=== PATIENT | male | born 1975 | race Caucasian/White ===

== ENCOUNTER → 2020-02-06 13:24 | Outpatient (CLI) | payer MEDICARE, SELFPAY | PROVIDERS: Visit Provider Family Medicine | DX: T14.8XXA Other injury of unspecified body region, initial encounter (principal) | CPT/HCPCS: 87070; 87077; 87186; 87205 ==

== ENCOUNTER → 2020-08-05 12:56 | Outpatient (CLI) | payer MEDICARE, SELFPAY ==
[2020-08-05 13:19] LABS: Basophils # 0.1 K/mm3 (0-0.2); Basophils % 0.9 % (0.1-2.0); Eosinophils # 0.2 K/mm3 (0.0-0.4); Eosinophils % 2.5 % (0.1-12.0); Hematocrit 59.8 % (42.0-52.0); Lymphocytes # 2.3 K/mm3 (0.7-4.5); Lymphocytes % 26.8 % (10-50); Mean Corpuscular HGB Conc 34.4 g/dL (31.8-35.4); Mean Corpuscular Volume 96.1 fl (80-94); Mean Platelet Volume 8.6 fl (7.4-10.4); Monocytes # 0.4 K/mm3 (0.1-1.0); Monocytes % 4.9 % (1.7-9.3); Neutrophils # 5.5 K/mm3 (1.8-7.8); Neutrophils % 64.8 % (37.0-80.0); Platelet Count 157 K/mm3 (142-424); Red Blood Count 6.21 M/mm3 (4.60-6.20); Red Cell Distribution Width 13.1 % (11.5-17.5); White Blood Count 8.5 K/mm3 (4.8-10.8)
[2020-08-05 13:20] LABS: Alanine Aminotransferase 41 U/L (12-78); Albumin Level 4.5 g/dl (3.5-5.0); Albumin/Globulin Ratio 1.7 (1.1-1.8); Alkaline Phosphatase 133 U/L (38-126); Anion Gap 15.1 mEq/L (5-15); Aspartate Amino Transferase 30 U/L (17-59); Bilirubin,Total 0.9 mg/dl (0.2-1.3); Blood Urea Nitrogen 10 mg/dl (9-20); Calcium 9.4 mg/dl (8.4-10.2); Carbon Dioxide 27 mmol/L (22.0-30.0); Chloride 100 mmol/L (98-107); Chol/HDL Ratio 5.9 (1-3.5); Cholesterol 213 mg/dl (140-200); Estimated Glomerular Filt Rate 121 ml/min (>60); GFR (African American) 146 ML/MIN (>60); Globulin 2.7 g/dL (1.3-3.2); Glucose 360 mg/dl (74-100); HDL Cholesterol 36 mg/dl (40-60); Potassium 4.1 mmoL/L (3.5-5.1); Sodium 138 mmol/L (136-145); Total Protein,Serum 7.2 g/dl (6.3-8.2); Triglycerides 357 mg/dl (30-150); VLDL Cholesterol 71 mg/dL (0-40)
[2020-08-05 13:31] LABS: Direct LDL Cholesterol 133.62 mg/dL (100-129)
[2020-08-05 13:36] LABS: 25-OH Vitamin D, Total 23.4 ng/mL (30-100)
[2020-08-05 13:37] LABS: T4 (Thyroxine) 5.1 ug/dl (5.53-11.0)
[2020-08-05 13:51] LABS: Hemoglobin 20.7 g/dL (14.1-18.0); Thyroid Stimulating Hormone 0.79 uIU/mL (0.465-4.68)
[2020-08-05 14:46] LABS: Creatinine,Urine Random 78 mg/dL (Not Estab.)
[2020-08-05 14:48] LABS: Microalbumin/Creatinine Ratio 41.4
[2020-08-13 18:00] LABS: Testosterone, Total, LC/MS 213.7 ng/dL (264.0-916.0); Testosterone,Free 4.8 pg/mL (6.8-21.5)
== END ==
PROVIDERS: Visit Provider Family Medicine
DX: E11.9 Type 2 diabetes mellitus without complications (principal); F40.298 Other specified phobia; G47.00 Insomnia, unspecified; E55.9 Vitamin D deficiency, unspecified; Z79.84 Long term (current) use of oral hypoglycemic drugs
CPT/HCPCS: 80053; 80061; 82043; 82306; 82570; 83036; 84402; 84403; 84436; 84443; 85025

== ENCOUNTER 2020-08-27 11:00 | Outpatient (CLI) | payer MEDICARE, SELFPAY ==
[2020-08-27 11:22] VITALS: BMI 26.5
--- NOTE | 2020-08-27 11:32 | XR_ITS ---
PROCEDURE: XR CHEST 2V CLINICAL HISTORY: ELEVATED HCT COMPARISON: No exams were available for comparison FINDINGS: The cardiomediastinal silhouette and pulmonary vascularity are within normal limits. The lungs are clear without infiltrates, suspicious nodules, or pleural effusions. No acute bony abnormalities. IMPRESSION: No acute findings. Dictated by: Laureano Haynes MD 08/27/2020 11:47 Laureano Haynes MD in [place] 08/27/2020 11:47
[2020-08-27 12:01] LABS: Basophils # 0.1 K/mm3 (0-0.2); Basophils % 0.8 % (0.1-2.0); Eosinophils # 0.3 K/mm3 (0.0-0.4); Eosinophils % 2.9 % (0.1-12.0); Hematocrit 55.6 % (42.0-52.0); Lymphocytes # 2.2 K/mm3 (0.7-4.5); Lymphocytes % 23.9 % (10-50); Mean Corpuscular HGB Conc 34.5 g/dL (31.8-35.4); Mean Corpuscular Hemoglobin 32.7 pg (27.0-31.2); Mean Corpuscular Volume 94.7 fl (80-94); Monocytes # 0.4 K/mm3 (0.1-1.0); Monocytes % 4.1 % (1.7-9.3); Neutrophils # 6.2 K/mm3 (1.8-7.8); Neutrophils % 68.4 % (37.0-80.0); Platelet Count 179 K/mm3 (142-424); Red Blood Count 5.88 M/mm3 (4.60-6.20); Red Cell Distribution Width 12.7 % (11.5-17.5); White Blood Count 9.1 K/mm3 (4.8-10.8)
[2020-08-27 12:02] LABS: Hemoglobin 19.2 g/dL (14.1-18.0)
[2020-08-27 12:18] LABS: Chloride 99 mmol/L (98-107); Potassium 4.1 mmoL/L (3.5-5.1); Sodium 137 mmol/L (136-145)
[2020-08-27 12:20] LABS: Blood Urea Nitrogen 11 mg/dl (9-20)
[2020-08-27 12:21] LABS: Alanine Aminotransferase 43 U/L (12-78); Albumin Level 4.5 g/dl (3.5-5.0); Albumin/Globulin Ratio 1.7 (1.1-1.8); Alkaline Phosphatase 116 U/L (38-126); Anion Gap 11.1 mEq/L (5-15); Aspartate Amino Transferase 28 U/L (17-59); Bilirubin,Total 0.7 mg/dl (0.2-1.3); Carbon Dioxide 31 mmol/L (22.0-30.0); Creatinine Clearance Estimated 120 mL/min (50-200); Estimated Glomerular Filt Rate 104 ml/min (>60); GFR (African American) 125 ML/MIN (>60); Globulin 2.7 g/dL (1.3-3.2); Total Protein,Serum 7.2 g/dl (6.3-8.2)
[2020-08-27 12:22] LABS: Calcium 9.4 mg/dl (8.4-10.2); Glucose 344 mg/dl (74-100)
--- NOTE | 2020-08-27 14:01 | PC.NURSE ---
1155 - BLOOD DRAWN FROM LEFT AC USING BUTTERFLY NEEDLE TO CHECK LABS ORDERED BY DR MAI. 1210 - PT'S HCT 55.6. HAS ORDER FOR THERAPEUTIC PHLEBOTOMY IF HCT>54. PT VERY ANXIOUS ABOUT NEEDLES AND MEDICAL PROCEDURES. ASKING A LOT OF QUESTIONS ABOUT WHAT RISKS ARE INVOLVED WITH ELEVATED HCT. PT STATED HE HAD MADE RECENT LIFESTYLE CHANGES AND HIS LEVELS HAVE DROPPED SINCE HE HAD LABS CHECKED ON 08/05/20 THEREFORE HE WAS GOING TO CONTINUE WITH THESE CHANGES AND TRY TO BRING THE HCT DOWN HIMSELF. REFUSED THERAPEUTIC PHLEBOTOMY TODAY. WILL RETURN FOR LABS AND TO SEE DR MAI ON 09/17/20. DR MAI NOTIFIED.
== END 2020-08-27 12:10 | disposition home or self-care (01) ==
PROVIDERS: PCP Family Medicine; Visit Provider Internal Medicine Medical Oncology
DX: D68.9 Coagulation defect, unspecified; Z72.0 Tobacco use; D75.1 Secondary polycythemia
CPT/HCPCS: 71046; 80053; 81270; 82668; 85025

== ENCOUNTER → 2020-11-30 15:39 | Outpatient (CLI) | payer MEDICARE, SELFPAY ==
[2020-11-30 16:27] LABS: Chloride 99 mmol/L (98-107); Potassium 4.8 mmoL/L (3.5-5.1); Sodium 139 mmol/L (136-145)
[2020-11-30 16:30] LABS: Alanine Aminotransferase 30 U/L (12-78); Albumin Level 4.7 g/dl (3.5-5.0); Albumin/Globulin Ratio 1.7 (1.1-1.8); Alkaline Phosphatase 159 U/L (38-126); Anion Gap 16.8 mEq/L (5-15); Aspartate Amino Transferase 23 U/L (17-59); Blood Urea Nitrogen 6 mg/dl (9-20); Calcium 9.7 mg/dl (8.4-10.2); Carbon Dioxide 28 mmol/L (22.0-30.0); Estimated Glomerular Filt Rate 144 ml/min (>60); GFR (African American) 175 ML/MIN (>60); Globulin 2.7 g/dL (1.3-3.2); Glucose 266 mg/dl (74-100); Total Protein,Serum 7.4 g/dl (6.3-8.2)
== END ==
PROVIDERS: Visit Provider Family Medicine
DX: Z09 Encounter for follow-up examination after completed treatment for conditions other than malignant neoplasm (principal); E11.9 Type 2 diabetes mellitus without complications; Z79.4 Long term (current) use of insulin
CPT/HCPCS: 80053; 83036

== ENCOUNTER → 2021-10-27 16:47 | Outpatient (CLI) | payer MEDICARE, SELFPAY ==
[2021-10-27 15:14] LABS: Basophils # 0.1 K/mm3 (0-0.2); Basophils % 0.7 % (0.1-2.0); Eosinophils # 0.2 K/mm3 (0.0-0.4); Eosinophils % 1.9 % (0.1-12.0); Lymphocytes # 2.3 K/mm3 (0.7-4.5); Lymphocytes % 21.9 % (10-50); Mean Corpuscular HGB Conc 34.5 g/dL (31.8-35.4); Mean Corpuscular Hemoglobin 32.5 pg (27.0-31.2); Mean Corpuscular Volume 94.4 fl (80-94); Mean Platelet Volume 8.8 fl (7.4-10.4); Monocytes # 0.7 K/mm3 (0.1-1.0); Monocytes % 6.6 % (1.7-9.3); Neutrophils # 7.1 K/mm3 (1.8-7.8); Neutrophils % 68.9 % (37.0-80.0); Platelet Count 175 K/mm3 (142-424); Red Blood Count 6.43 M/mm3 (4.60-6.20); Red Cell Distribution Width 13.3 % (11.5-17.5); White Blood Count 10.3 K/mm3 (4.8-10.8)
[2021-10-27 15:28] LABS: Alanine Aminotransferase 40 U/L (12-78); Albumin Level 4.8 g/dl (3.5-5.0); Albumin/Globulin Ratio 1.6 (1.1-1.8); Aspartate Amino Transferase 25 U/L (17-59); Blood Urea Nitrogen 10 mg/dl (9-20); Carbon Dioxide 30 mmol/L (22.0-30.0); Cholesterol 239 mg/dl (140-200); Estimated Glomerular Filt Rate 177 ml/min (>60); GFR (African American) 215 ML/MIN (>60); Potassium 4.4 mmoL/L (3.5-5.1); Sodium 137 mmol/L (136-145); Total Protein,Serum 7.8 g/dl (6.3-8.2); Triglycerides 218 mg/dl (30-150); VLDL Cholesterol 44 mg/dL (0-40)
[2021-10-27 15:31] LABS: Alkaline Phosphatase 147 U/L (38-126); Anion Gap 14.4 mEq/L (5-15); Bilirubin,Total 1.9 mg/dl (0.2-1.3); Calcium 10.2 mg/dl (8.4-10.2); Chloride 97 mmol/L (98-107); Glucose 273 mg/dl (74-100); HDL Cholesterol 40 mg/dl (40-60)
[2021-10-27 15:39] LABS: Direct LDL Cholesterol 151.86 mg/dL (100-129)
[2021-10-27 16:01] LABS: Prostate Specific Ag Screen 0.7 ng/ml (0.0-4.0); Thyroid Stimulating Hormone 1.79 uIU/mL (0.465-4.68)
[2021-10-27 17:43] LABS: Hemoglobin A1C 9.8 % (4.0-6.0)
[2021-10-27 18:27] LABS: Hematocrit 60.7 % (42.0-52.0)
== END ==
PROVIDERS: Visit Provider Family Medicine
DX: E11.9 Type 2 diabetes mellitus without complications (principal); R63.4 Abnormal weight loss; Z12.5 Encounter for screening for malignant neoplasm of prostate; G47.00 Insomnia, unspecified; F40.298 Other specified phobia; Z79.4 Long term (current) use of insulin
CPT/HCPCS: 80053; 80061; 83036; 84443; 85025; G0103

== ENCOUNTER → 2021-11-07 10:15 | Outpatient (CLI) | payer MEDICARE, SELFPAY ==
--- NOTE | 2021-11-07 10:20 | CT_ITS ---
FINAL REPORT TECHNIQUE: Axial images through the abdomen and pelvis were performed without contrast.This study was performed with techniques to keep radiation doses as low as reasonably achievable, (ALARA). Individualized dose reduction techniques using automated exposure control or adjustment of mA and/or kV according to the patient's size were employed. CLINICAL HISTORY: abn weight loss in last 6 months, denies n/v/d FINDINGS: ABDOMEN: The heart size is normal. Limited images of the liver and gallbladder are unremarkable. Calcified granulomas are seen within the spleen. The spleen is otherwise normal. No adrenal mass is identified. The aorta is normal in caliber. There is no significant free fluid or adenopathy. There is no nephrolithiasis. There is no hydronephrosis. PELVIS: The appendix is normal. The urinary bladder is incompletely distended. There is no significant free fluid or adenopathy. IMPRESSION: No acute process of the abdomen or pelvis. Reviewed, Interpreted and Dictated by Saad Thomas MD Transcribed by Theresa Khanna Authenticated and [facility]
--- NOTE | 2021-11-07 10:20 | CT_ITS ---
FINAL REPORT TECHNIQUE: Axial imaging of the chest was obtained without contrast. Reformatted images were also obtained and reviewed.This study was performed with techniques to keep radiation doses as low as reasonably achievable, (ALARA). Individualized dose reduction technique using automated exposure control or adjustment of mA and/or kV according to the patient's size were employed. CLINICAL HISTORY: weight loss in last 6 months FINDINGS: There is no axillary adenopathy. There are small mediastinal lymph nodes measuring up to 1 cm. Heart size is normal. There is no pericardial or pleural effusion. No suspicious infiltrate or nodule is identified on lung window images. IMPRESSION: Small mediastinal lymph nodes measuring up to 1 cm. Otherwise, unremarkable exam. Reviewed, Interpreted and Dictated by Saad Thomas MD Transcribed by Theresa Khanna Authenticated and . [facility]
== END ==
PROVIDERS: PCP Family Medicine; Visit Provider Family Medicine
DX: R63.4 Abnormal weight loss (principal); Z68.22 Body mass index [BMI] 22.0-22.9, adult
CPT/HCPCS: 71250; 74176

== ENCOUNTER 2022-01-20 10:25 | Outpatient (CLI) | payer MEDICARE, SELFPAY ==
[2022-01-20 10:31] VITALS: BMI 22.6
[2022-01-20 11:33] LABS: Basophils # 0.2 K/mm3 (0-0.2); Eosinophils # 0.3 K/mm3 (0.0-0.4); Eosinophils % 3.2 % (0.1-12.0); Mean Corpuscular HGB Conc 32.6 g/dL (31.8-35.4); Mean Corpuscular Hemoglobin 32.8 pg (27.0-31.2); Mean Corpuscular Volume 100.5 fl (80-94); Monocytes # 0.5 K/mm3 (0.1-1.0); Monocytes % 5.3 % (1.7-9.3); Neutrophils # 6.4 K/mm3 (1.8-7.8); Neutrophils % 68.6 % (37.0-80.0); Platelet Count 194 K/mm3 (142-424); Red Cell Distribution Width 13.5 % (11.5-17.5); White Blood Count 9.4 K/mm3 (4.8-10.8)
[2022-01-20 11:40] LABS: Hematocrit 60.3 % (42.0-52.0); Hemoglobin 19.9 g/dL (14.1-18.0)
[2022-01-20 11:44] LABS: Hemoglobin A1C 8.6 % (4.0-6.0)
--- NOTE | 2022-01-20 14:20 | PC.NURSE ---
1120-BLOOD DRAWN FROM LEFT AC USING BUTTERFLY NEEDLE FOR CBC AND HGB A1C.
--- NOTE | 2022-01-20 14:22 | PC.NURSE ---
1140-SPOKE WITH PT IN DEPTH ABOUT ORDERS FOR THERAPEUTIC PHLEBOTOMY DUE TO HCT 60.3 DISCUSSED RISKS ASSOCIATED WITH ELEVATED HCT AND PT REFUSES TO STAY FOR PHLEBOTOMY. STATES HE WILL CALL US BACK IF HE CHANGES HIS MIND.
== END 2022-01-20 11:55 | disposition home or self-care (01) ==
LOC: INF 10:29
PROVIDERS: PCP Family Medicine; Visit Provider Internal Medicine Medical Oncology
DX: E11.9 Type 2 diabetes mellitus without complications (principal); Z79.4 Long term (current) use of insulin
CPT/HCPCS: 36415; 83036; 85025

== ENCOUNTER 2022-03-28 11:17 | Day surgery (SDC) | payer MEDICARE, SELFPAY ==
[2022-03-24 15:38] VITALS: BMI 21.3
[2022-03-28] VITALS (8 sets, daily range): BP systolic 91–114; BP diastolic 60–77; PULSE 81–103; RESP 18–20; TEMP 36.3–36.6; O2SAT 92–96
--- NOTE | 2022-03-28 12:05 | EXP.ANES.CKL ---
[facility] Medical History Anal fistula Anxiety Chronic pain Diabetes HLD (hyperlipidemia) HTN (hypertension) Insomnia Neuropathy Surgical History No significant past surgical history Family History Other No significant family history Social History Smoking Status: Current every day smoker tobacco type: cigarettes packs per day: 1 alcohol intake: never substance use type: denies use current occupational status: unemployed and disabled Travel in the last 8 weeks: None household members: spouse housing: house [facility] Anesthesia Checklist Patient Identification Patient Identification: Arm Band Structural Data Admitted From: Home Planned Operative Procedure/s: EGD/Colonoscopy Consent for Planned Operative Procedure(s) Verified: Yes Verified Documents: Surgical Consent and History and Physical NPO Status Verified Time NPO: 07:00 (clear liquids) Additional verifications Anesthesia Reactions: No Airway Assessment C-Spine Mobility Assessed: Yes TMJ Mobility Assessed: Yes Dentition: Good Dentition Neurological Assessment Level of Consciousness: Awake and Alert Anesthesia Plan Anesthesia Risk discussed: Yes Anesthesia Plan: Verified ASA Class: II Anesthesia Type: MAC
--- NOTE | 2022-03-28 12:58 | HMH.SCOPE ---
Procedure: Date: 03/28/22 Patient Date of :: 1975 Procedure Performed:: Esophagogastroduodenoscopy with biopsy Colonoscopy with polypectomy Indications:: Epigastric pain Screening colonoscopy Performing Provider:: Will Adams MD Referring Provider:: . Sedation:: Monitored anesthesia care Procedure:: After informed consent was obtained the patient was taken to the endoscopy suite. Sedation ensued after the patient was transferred to the left lateral decubitus position. Pulse, blood pressure, and oxygen saturation were monitored throughout the procedure. The endoscope was advanced beyond the duodenal bulb. Retroflexion within the gastric lumen was accomplished. The gastroscope was carefully removed. Digital rectal exam revealed no significant abnormality. The colonoscope was placed in position. The entire colon was evaluated. The colonoscope was carefully removed and the patient was transferred to recovery in stable condition. Please see findings and specimens below for detail. Findings:: Small sliding hiatal hernia Patchy gastritis Gastroesophageal junction at 41 cm Tiny mid gastric body ulcerations (essentially healed) Hemorrhoidal cushions/tags Bowel preparation moderate to poor Fairly significant tortuosity and lack of relaxation Polyps (see specimens) Specimens:: Antral biopsy Mid gastric body (small/essentially healed ulcerations) biopsy Biopsy of perianal cushion Sessile mid right colon polyp (cold snare) Hepatic flexure polyp (cold snare) Recommendations:: Timing of repeat colonoscopy is pending pathology but likely be around 1-2 years with extended bowel preparation. Proton pump inhibition Complications:: No immediate Estimated blood obtained (mL): 1
[2022-03-28 22:26] LABS: POC Glucose,Bedside 140 (70-110)
== END 2022-03-28 14:28 | disposition home or self-care (01) ==
PROVIDERS: PCP Family Medicine; Visit Provider Surgery
PROC: 0DJ08ZZ Inspection of Upper Intestinal Tract, Via Natural or Artificial Opening Endoscopic (ICD-10-PCS; CPT 43235; principal; 2022-03-28 12:30)
DX: R10.13 Epigastric pain (principal); Z12.11 Encounter for screening for malignant neoplasm of colon; K63.5 Polyp of colon; K29.50 Unspecified chronic gastritis without bleeding; E11.9 Type 2 diabetes mellitus without complications; Z79.899 Other long term (current) drug therapy; Z72.0 Tobacco use
CPT/HCPCS: 43239; 45385; 82962; 88305; 88342; J2704

== ENCOUNTER → 2022-04-20 12:02 | Outpatient (CLI) | payer MEDICARE, SELFPAY ==
--- NOTE | 2022-04-20 12:05 | US_ITS ---
FINAL REPORT CLINICAL HISTORY: RUQ pain FINDINGS: Sonographic images of the right upper quadrant were obtained. The pancreas is partially obscured.The liver has an unremarkable appearance.The gallbladder appears normal without evidence of gallstones.There is no evidence of biliary ductal dilatation.The common duct measures 3 mm. Limited images of the right kidney are unremarkable. IMPRESSION: Unremarkable right upper quadrant ultrasound. Reviewed, Interpreted and Dictated by Marcelo Laird III, MD Transcribed by Carmela Mcdermott Authenticated and [facility]
== END ==
PROVIDERS: PCP Family Medicine; Visit Provider Family Medicine
DX: R10.11 Right upper quadrant pain (principal)
CPT/HCPCS: 76705

== ENCOUNTER → 2022-06-15 12:57 | Outpatient (CLI) | payer MEDICARE, SELFPAY ==
[2022-06-15 17:08] LABS: MANUAL DIFFERENTIAL MANUAL DIFFERENTIAL (MANUAL DIFF)
[2022-06-15 17:53] LABS: Basophils # 0.1 K/mm3 (0-0.2); Basophils % 0.7 % (0.1-2.0); Eosinophils # 0.2 K/mm3 (0.0-0.4); Hematocrit 46.3 % (42.0-52.0); Hemoglobin 15.2 g/dL (14.1-18.0); Lymphocytes % 26.7 % (10-50); Mean Corpuscular HGB Conc 32.9 g/dL (31.8-35.4); Mean Corpuscular Hemoglobin 31.2 pg (27.0-31.2); Mean Corpuscular Volume 94.8 fl (80-94); Mean Platelet Volume 8.7 fl (7.4-10.4); Monocytes # 0.6 K/mm3 (0.1-1.0); Monocytes % 5.2 % (1.7-9.3); Neutrophils # 7.4 K/mm3 (1.8-7.8); Neutrophils % 65.4 % (37.0-80.0); Platelet Count 330 K/mm3 (142-424); Red Blood Count 4.89 M/mm3 (4.60-6.20); Red Cell Distribution Width 12.8 % (11.5-17.5); White Blood Count 11.3 K/mm3 (4.8-10.8)
[2022-06-15 18:05] LABS: Alanine Aminotransferase 23 U/L (12-78); Albumin Level 4.5 g/dl (3.5-5.0); Albumin/Globulin Ratio 1.6 (1.1-1.8); Alkaline Phosphatase 128 U/L (38-126); Anion Gap 10.7 mEq/L (5-15); Aspartate Amino Transferase 19 U/L (17-59); Bilirubin,Total 0.6 mg/dl (0.2-1.3); Blood Urea Nitrogen 11 mg/dl (9-20); Calcium 9.4 mg/dl (8.4-10.2); Carbon Dioxide 32 mmol/L (22.0-30.0); Chloride 98 mmol/L (98-107); Chol/HDL Ratio 5.9 (1-3.5); Cholesterol 177 mg/dl (140-200); Estimated Glomerular Filt Rate 144 ml/min (>60); GFR (African American) 174 ML/MIN (>60); Globulin 2.8 g/dL (1.3-3.2); Glucose 122 mg/dl (74-100); HDL Cholesterol 30 mg/dl (40-60); Lipase 43 U/L (23-300); Potassium 3.7 mmoL/L (3.5-5.1); Sodium 137 mmol/L (136-145); Total Protein,Serum 7.3 g/dl (6.3-8.2); Triglycerides 161 mg/dl (30-150); VLDL Cholesterol 32 mg/dL (0-40)
[2022-06-15 18:15] LABS: Direct LDL Cholesterol 115.24 mg/dL (100-129)
[2022-06-15 19:10] LABS: Hemoglobin A1C 6.6 % (4.0-6.0)
[2022-06-15 19:24] LABS: Lymphocytes % 44 % (10-50); Monocytes % 3 % (2-9); Neutrophils % 52 % (42-76); Total Cells Counted 100
[2022-06-15 19:25] LABS: Anisocytosis 1+; Platelet Estimate Slight Increase
[2022-06-16 16:13] LABS: H. pylori Breath Test Negative (Negative)
[2022-06-22 12:37] LABS: Testosterone,Free 4.4 pg/mL (6.8-21.5)
== END ==
PROVIDERS: PCP Family Medicine; Visit Provider Family Medicine
DX: A04.8 Other specified bacterial intestinal infections (principal); E11.9 Type 2 diabetes mellitus without complications; G89.29 Other chronic pain; M54.9 Dorsalgia, unspecified; R10.9 Unspecified abdominal pain; Z79.4 Long term (current) use of insulin
CPT/HCPCS: 80053; 80061; 83013; 83036; 83690; 84402; 84403; 85007; 85014; 85018; 85048; 85049

== ENCOUNTER → 2022-07-20 11:15 | Outpatient (CLI) | payer MEDICARE, SELFPAY ==
[2022-07-20 14:49] LABS: Chloride 99 mmol/L (98-107)
[2022-07-20 14:50] LABS: Sodium 138 mmol/L (136-145)
[2022-07-20 14:52] LABS: Blood Urea Nitrogen 12 mg/dl (9-20); Estimated Glomerular Filt Rate 120 ml/min (>60); GFR (African American) 145 ML/MIN (>60)
[2022-07-20 14:53] LABS: Carbon Dioxide 33 mmol/L (22.0-30.0); Glucose 114 mg/dl (74-100)
== END ==
PROVIDERS: PCP Family Medicine; Visit Provider Family Medicine
DX: E78.5 Hyperlipidemia, unspecified (principal)
CPT/HCPCS: 80048

== ENCOUNTER → 2022-11-09 23:08 | Outpatient (CLI) | payer MEDICARE, SELFPAY ==
[2022-11-09 18:12] LABS: Basophils % 0.6 % (0.1-2.0); Eosinophils # 0.2 K/mm3 (0.0-0.4); Eosinophils % 2.6 % (0.1-12.0); Hematocrit 57.6 % (42.0-52.0); Lymphocytes # 1.9 K/mm3 (0.7-4.5); Lymphocytes % 24.9 % (10-50); Mean Corpuscular HGB Conc 32.1 g/dL (31.8-35.4); Mean Corpuscular Hemoglobin 31.3 pg (27.0-31.2); Mean Corpuscular Volume 97.6 fl (80-94); Mean Platelet Volume 8.8 fl (7.4-10.4); Monocytes # 0.4 K/mm3 (0.1-1.0); Monocytes % 5.1 % (1.7-9.3); Neutrophils % 66.7 % (37.0-80.0); Platelet Count 193 K/mm3 (142-424); Red Cell Distribution Width 13.6 % (11.5-17.5); White Blood Count 7.4 K/mm3 (4.8-10.8)
[2022-11-09 18:14] LABS: Alanine Aminotransferase 18 U/L (12-78); Albumin Level 4.2 g/dl (3.5-5.0); Albumin/Globulin Ratio 1.8 (1.1-1.8); Alkaline Phosphatase 100 U/L (38-126); Anion Gap 10.2 mEq/L (5-15); Aspartate Amino Transferase 22 U/L (17-59); Bilirubin,Total 0.9 mg/dl (0.2-1.3); Blood Urea Nitrogen 7 mg/dl (9-20); Calcium 9.2 mg/dl (8.4-10.2); Carbon Dioxide 32 mmol/L (22.0-30.0); Chloride 103 mmol/L (98-107); Chol/HDL Ratio 3.4 (1-3.5); Cholesterol 167 mg/dl (140-200); Estimated Glomerular Filt Rate 143 ml/min (>60); GFR (African American) 173 ML/MIN (>60); Globulin 2.4 g/dL (1.3-3.2); Glucose 103 mg/dl (74-100); HDL Cholesterol 49 mg/dl (40-60); Potassium 4.2 mmoL/L (3.5-5.1); Sodium 141 mmol/L (136-145); Total Protein,Serum 6.6 g/dl (6.3-8.2); Triglycerides 103 mg/dl (30-150); VLDL Cholesterol 21 mg/dL (0-40)
[2022-11-09 18:24] LABS: Direct LDL Cholesterol 98.81 mg/dL (100-129)
[2022-11-09 18:37] LABS: Hemoglobin 18.3 g/dL (14.1-18.0)
[2022-11-09 19:13] LABS: Hemoglobin A1C 6.3 % (4.0-6.0)
== END ==
PROVIDERS: PCP Family Medicine; Visit Provider Family Medicine
DX: E11.9 Type 2 diabetes mellitus without complications (principal); Z79.899 Other long term (current) drug therapy
CPT/HCPCS: 80053; 80061; 83036; 84443; 85025

== ENCOUNTER → 2023-01-11 23:52 | Outpatient (CLI) | payer MEDICARE, SELFPAY ==
[2023-01-11 18:27] LABS: Basophils # 0.1 K/mm3 (0-0.2); Basophils % 0.7 % (0.1-2.0); Eosinophils # 0.1 K/mm3 (0.0-0.4); Eosinophils % 1.7 % (0.1-12.0); Lymphocytes # 1.8 K/mm3 (0.7-4.5); Lymphocytes % 21.1 % (10-50); Mean Corpuscular HGB Conc 31.3 g/dL (31.8-35.4); Mean Corpuscular Hemoglobin 32.2 pg (27.0-31.2); Mean Corpuscular Volume 102.7 fl (80-94); Mean Platelet Volume 8.7 fl (7.4-10.4); Monocytes # 0.5 K/mm3 (0.1-1.0); Monocytes % 5.7 % (1.7-9.3); Neutrophils # 5.9 K/mm3 (1.8-7.8); Neutrophils % 70.8 % (37.0-80.0); Platelet Count 160 K/mm3 (142-424); Red Blood Count 5.87 M/mm3 (4.60-6.20); Red Cell Distribution Width 14.5 % (11.5-17.5); White Blood Count 8.3 K/mm3 (4.8-10.8)
[2023-01-11 18:53] LABS: Hematocrit 60.3 % (42.0-52.0); Hemoglobin 18.9 g/dL (14.1-18.0)
[2023-01-11 18:54] LABS: Alanine Aminotransferase 19 U/L (12-78); Albumin Level 4.1 g/dl (3.5-5.0); Albumin/Globulin Ratio 1.6 (1.1-1.8); Alkaline Phosphatase 107 U/L (38-126); Anion Gap 11.9 mEq/L (5-15); Aspartate Amino Transferase 22 U/L (17-59); Bilirubin,Total 1.3 mg/dl (0.2-1.3); Blood Urea Nitrogen 11 mg/dl (9-20); Calcium 9.1 mg/dl (8.4-10.2); Carbon Dioxide 32 mmol/L (22.0-30.0); Chloride 103 mmol/L (98-107); Chol/HDL Ratio 2.3 (1-3.5); Cholesterol 144 mg/dl (140-200); Estimated Glomerular Filt Rate 120 ml/min (>60); GFR (African American) 145 ML/MIN (>60); Globulin 2.6 g/dL (1.3-3.2); Glucose 109 mg/dl (74-100); HDL Cholesterol 63 mg/dl (40-60); Potassium 3.9 mmoL/L (3.5-5.1); Sodium 143 mmol/L (136-145); Total Protein,Serum 6.7 g/dl (6.3-8.2); Triglycerides 128 mg/dl (30-150); VLDL Cholesterol 26 mg/dL (0-40)
[2023-01-11 19:02] LABS: Hemoglobin A1C 5.6 % (4.0-6.0)
[2023-01-11 19:06] LABS: Direct LDL Cholesterol 72.59 mg/dL (100-129)
== END ==
PROVIDERS: PCP Family Medicine; Visit Provider Family Medicine
DX: F41.9 Anxiety disorder, unspecified (principal); M54.40 Lumbago with sciatica, unspecified side; E11.9 Type 2 diabetes mellitus without complications
CPT/HCPCS: 80053; 80061; 83036; 85025

== ENCOUNTER → 2023-04-12 23:33 | Outpatient (CLI) | payer MEDICARE, SELFPAY ==
[2023-04-12 21:38] LABS: Amphetamine/Metha Screen,Urine Negative ng/ml (<1000)
[2023-04-12 21:40] LABS: Cannabinoid Screen,Urine Negative ng/ml (<50)
[2023-04-12 21:41] LABS: Barbiturates Screen,Urine Negative ng/ml (<200)
[2023-04-12 21:42] LABS: Benzodiazepines Screen,Urine Positive ng/ml (<200); Opiate Screen,Urine Positive ng/ml (<300)
[2023-04-12 21:43] LABS: Cocaine Screen,Urine Negative ng/ml (<300)
[2023-04-12 21:44] LABS: Methadone Screen,Urine Negative ng/ml (<300)
[2023-04-12 21:45] LABS: Phencyclidine Screen,Urine Negative ng/ml (<25)
== END ==
PROVIDERS: PCP Family Medicine; Visit Provider Family Medicine
DX: Z79.899 Other long term (current) drug therapy (principal)
CPT/HCPCS: 80305

== ENCOUNTER 2023-05-10 19:43 | Outpatient (CLI) | payer MEDICARE, SELFPAY ==
[2023-05-10 22:29] LABS: Amphetamine/Metha Screen,Urine Negative ng/ml (<1000); Barbiturates Screen,Urine Negative ng/ml (<200); Benzodiazepines Screen,Urine Positive ng/ml (<200); Cannabinoid Screen,Urine Negative ng/ml (<50); Cocaine Screen,Urine Negative ng/ml (<300); Methadone Screen,Urine Negative ng/ml (<300); Opiate Screen,Urine Positive ng/ml (<300); Phencyclidine Screen,Urine Negative ng/ml (<25)
== END 2023-05-10 23:59 ==
LOC: LAB.DROPOF 19:43
PROVIDERS: PCP Family Medicine; Visit Provider Family Medicine
DX: Z79.899 Other long term (current) drug therapy (principal)
CPT/HCPCS: 80307

== ENCOUNTER 2023-06-07 22:13 | Outpatient (CLI) | payer MEDICARE, SELFPAY ==
[2023-06-07 19:21] LABS: Basophils # 0.1 K/mm3 (0-0.2); Basophils % 0.6 % (0.1-2.0); Eosinophils # 0.3 K/mm3 (0.0-0.4); Eosinophils % 2.9 % (0.1-12.0); Lymphocytes # 2.3 K/mm3 (0.7-4.5); Lymphocytes % 24.8 % (10-50); Mean Corpuscular HGB Conc 32.8 g/dL (31.8-35.4); Mean Corpuscular Hemoglobin 33.9 pg (27.0-31.2); Mean Corpuscular Volume 103.4 fl (80-94); Mean Platelet Volume 9.1 fl (7.4-10.4); Monocytes # 0.5 K/mm3 (0.1-1.0); Monocytes % 5.8 % (1.7-9.3); Neutrophils # 6.1 K/mm3 (1.8-7.8); Platelet Count 156 K/mm3 (142-424); Red Blood Count 5.62 M/mm3 (4.60-6.20); Red Cell Distribution Width 12.9 % (11.5-17.5); White Blood Count 9.2 K/mm3 (4.8-10.8)
[2023-06-07 19:43] LABS: Alanine Aminotransferase 22 U/L (12-78); Albumin Level 4.3 g/dl (3.5-5.0); Albumin/Globulin Ratio 1.9 (1.1-1.8); Alkaline Phosphatase 94 U/L (38-126); Anion Gap 8.9 mEq/L (5-15); Aspartate Amino Transferase 26 U/L (17-59); Bilirubin,Total 0.7 mg/dl (0.2-1.3); Blood Urea Nitrogen 12 mg/dl (9-20); Calcium 9.4 mg/dl (8.4-10.2); Carbon Dioxide 32 mmol/L (22.0-30.0); Chloride 103 mmol/L (98-107); Chol/HDL Ratio 3.7 (1-3.5); Cholesterol 174 mg/dl (140-200); Estimated Glomerular Filt Rate 103 ml/min (>60); GFR (African American) 124 ML/MIN (>60); Globulin 2.3 g/dL (1.3-3.2); Glucose 81 mg/dl (74-100); HDL Cholesterol 47 mg/dl (40-60); Potassium 3.9 mmoL/L (3.5-5.1); Sodium 140 mmol/L (136-145); Total Protein,Serum 6.6 g/dl (6.3-8.2); Triglycerides 144 mg/dl (30-150); VLDL Cholesterol 29 mg/dL (0-40)
[2023-06-07 19:54] LABS: Direct LDL Cholesterol 95.86 mg/dL (100-129)
[2023-06-08 00:18] LABS: Hemoglobin A1C 5.7 % (4.0-6.0)
[2023-06-09 06:04] LABS: Testosterone,Total 360 ng/dL (264-916)
== END 2023-06-07 23:59 ==
LOC: LAB.DROPOF 22:13
PROVIDERS: PCP Family Medicine; Visit Provider Family Medicine
DX: E11.9 Type 2 diabetes mellitus without complications (principal); R68.82 Decreased libido; F41.9 Anxiety disorder, unspecified; Z79.4 Long term (current) use of insulin; Z79.84 Long term (current) use of oral hypoglycemic drugs; Z79.85 Long-term (current) use of injectable non-insulin antidiabetic drugs
CPT/HCPCS: 80053; 80061; 83036; 84403; 85025

== ENCOUNTER 2023-12-20 11:19 | Outpatient (CLI) | payer MEDICARE, SELFPAY ==
[2023-12-20 20:01] LABS: Basophils # 0.1 K/mm3 (0-0.2); Eosinophils # 0.2 K/mm3 (0.0-0.4); Eosinophils % 2.8 % (0.1-12.0); Hematocrit 52.4 % (42.0-52.0); Hemoglobin 16.8 g/dL (14.1-18.0); Lymphocytes # 2.3 K/mm3 (0.7-4.5); Lymphocytes % 26.2 % (10-50); Mean Corpuscular Hemoglobin 32.7 pg (27.0-31.2); Mean Corpuscular Volume 102.1 fl (80-94); Mean Platelet Volume 8.8 fl (7.4-10.4); Monocytes # 0.5 K/mm3 (0.1-1.0); Neutrophils # 5.5 K/mm3 (1.8-7.8); Platelet Count 228 K/mm3 (142-424); Red Blood Count 5.13 M/mm3 (4.60-6.20); Red Cell Distribution Width 13.1 % (11.5-17.5); White Blood Count 8.6 K/mm3 (4.8-10.8)
[2023-12-20 20:14] LABS: Alanine Aminotransferase 25 U/L (12-78); Albumin Level 4.2 g/dl (3.5-5.0); Albumin/Globulin Ratio 1.5 (1.1-1.8); Alkaline Phosphatase 113 U/L (38-126); Anion Gap 11.2 mEq/L (5-15); Aspartate Amino Transferase 31 U/L (17-59); Bilirubin,Total 0.6 mg/dl (0.2-1.3); Blood Urea Nitrogen 10 mg/dl (9-20); Calcium 9.4 mg/dl (8.4-10.2); Carbon Dioxide 28 mmol/L (22.0-30.0); Chloride 107 mmol/L (98-107); Chol/HDL Ratio 4.3 (1-3.5); Cholesterol 160 mg/dl (140-200); Estimated Glomerular Filt Rate 119 ml/min (>60); GFR (African American) 144 ML/MIN (>60); Globulin 2.8 g/dL (1.3-3.2); Glucose 62 mg/dl (74-100); HDL Cholesterol 37 mg/dl (40-60); Potassium 4.2 mmoL/L (3.5-5.1); Sodium 142 mmol/L (136-145); Triglycerides 206 mg/dl (30-150); VLDL Cholesterol 41 mg/dL (0-40)
[2023-12-20 20:25] LABS: Direct LDL Cholesterol 101.99 mg/dL (100-129)
[2023-12-20 20:32] LABS: Hemoglobin A1C 5.8 % (4.0-6.0)
[2023-12-22 10:11] LABS: Testosterone,Total 383 ng/dL (264-916)
== END 2023-12-20 23:59 | disposition home or self-care (01) ==
LOC: LAB.DROPOF 12-21 11:20
PROVIDERS: PCP Family Medicine; Visit Provider Family Medicine
DX: E11.9 Type 2 diabetes mellitus without complications (principal); R79.89 Other specified abnormal findings of blood chemistry; Z79.84 Long term (current) use of oral hypoglycemic drugs
CPT/HCPCS: 80053; 80061; 83036; 84403; 85025

== ENCOUNTER 2024-07-23 08:54 | Outpatient (CLI) | payer OTHER, MEDICARE, SELFPAY ==
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
[2024-07-23 09:23] LABS: Blood Urea Nitrogen 7 mg/dl (9-20); Estimated Glomerular Filt Rate 102 ml/min (>60); GFR (African American) 123 ML/MIN (>60)
[2024-07-23 09:35] LABS: NT Pro Brain Natriuretic Pep. 117 pg/mL (0-125)
[2024-07-23 09:36] LABS: D-Dimer 0.33 ug/mL (0.0-0.5)
[2024-07-23 09:38] LABS: Troponin I < 0.01 ng/ml (0.00-0.034)
[2024-07-23] MEDS: GADOTERIDOL INJ 20ML SYRINGE 15 ML IV (10:08)
[2024-07-23] MEDS: SODIUM CHLORIDE 0.9% 10ML SYR (RAD ONLY) 10 ML IV (10:08)
== END 2024-07-23 23:59 | disposition home or self-care (01) ==
LOC: RAD 08:56
PROVIDERS: Nurse Practitioner Family; PCP Family Medicine; Visit Provider Family Medicine
DX: M54.50 Low back pain, unspecified (principal); M25.551 Pain in right hip; G89.29 Other chronic pain; R20.0 Anesthesia of skin; R20.2 Paresthesia of skin; G83.4 Cauda equina syndrome
CPT/HCPCS: 36415; 72158; 82565; 83880; 84484; 84520; 85378; A9576

== ENCOUNTER 2024-08-22 07:49 | Outpatient (CLI) | payer OTHER, MEDICARE, SELFPAY ==
[2024-08-22 18:06] LABS: Albumin Level 4.4 g/dl (3.5-5.0); Chloride 103 mmol/L (98-107); Potassium 4.2 mmoL/L (3.5-5.1); Sodium 139 mmol/L (136-145)
[2024-08-22 18:09] LABS: Alanine Aminotransferase 29 U/L (12-78); Albumin/Globulin Ratio 1.5 (1.1-1.8); Alkaline Phosphatase 143 U/L (38-126); Anion Gap 12.2 mEq/L (5-15); Aspartate Amino Transferase 32 U/L (17-59); Bilirubin,Total 1.1 mg/dl (0.2-1.3); Blood Urea Nitrogen 7 mg/dl (9-20); Calcium 9.3 mg/dl (8.4-10.2); Carbon Dioxide 28 mmol/L (22.0-30.0); Estimated Glomerular Filt Rate 89 ml/min (>60); GFR (African American) 108 ML/MIN (>60); Glucose 116 mg/dl (74-100); Total Protein,Serum 7.4 g/dl (6.3-8.2)
[2024-08-22 18:38] LABS: Hemoglobin A1C 7.7 % (4.0-6.0)
[2024-08-24 09:13] LABS: Testosterone,Total 302 ng/dL (264-916)
== END 2024-08-22 23:59 | disposition home or self-care (01) ==
LOC: LAB.DROPOF 08-23 07:49
PROVIDERS: PCP Family Medicine; Visit Provider Family Medicine
DX: R32 Unspecified urinary incontinence (principal)
CPT/HCPCS: 80053; 83036; 84403

== ENCOUNTER 2024-10-30 10:32 | Outpatient (CLI) | payer OTHER, MEDICARE, SELFPAY ==
[2024-10-30 19:42] LABS: Alanine Aminotransferase 29 U/L (12-78); Albumin Level 4.6 g/dl (3.5-5.0); Albumin/Globulin Ratio 1.6 (1.1-1.8); Alkaline Phosphatase 155 U/L (38-126); Anion Gap 16.5 mEq/L (5-15); Aspartate Amino Transferase 26 U/L (17-59); Bilirubin,Total 1.0 mg/dl (0.2-1.3); Blood Urea Nitrogen 7 mg/dl (9-20); Calcium 9.5 mg/dl (8.4-10.2); Carbon Dioxide 27 mmol/L (22.0-30.0); Chloride 98 mmol/L (98-107); Cholesterol 202 mg/dl (140-200); Creatinine,Serum 0.80 mg/dl (0.66-1.25); Estimated Glomerular Filt Rate 102 ml/min (>60); GFR (African American) 123 ML/MIN (>60); Globulin 2.9 g/dL (1.3-3.2); Glucose 144 mg/dl (74-100); HDL Cholesterol 29 mg/dl (40-60); Potassium 4.5 mmoL/L (3.5-5.1); Sodium 137 mmol/L (136-145); Total Protein,Serum 7.5 g/dl (6.3-8.2); Triglycerides 170 mg/dl (30-150)
--- OUTSIDE RECORDS SUMMARY | 2024-11-03 10:51 | XMS_ITS | Clinical Summary ---
Author Organization [facility] Address [address] [id number] Care Team Providers Care Behavioral Technician Name Role Phone Narciso Dong MD Primary Care Provider [phone] Allergies No known active allergies Medications SULFAMETHOXAZOL E/TRIMETHOPRIM (BACTRIM PO) Active traMADol (ULTRAM) 50 mg tablet Active triamcinolone (KENALOG) 0.1 % creamIndication s:Irritant dermatitis Apply BID after soaks, then Cetaphil Cream to all skin 60 g 1 02/09/2014 Active LISINOPRIL PO Take by mouth. Active econazole nitrate (SPECTAZOLE) 1 % creamIndication s:Tinea pedis of both feet Apply Daily to feet after shower. 85 g 3 08/10/2015 Active Active Problems No known active problems Social History Tobacco Use Types Packs/Day Years Used Date Smoking Tobacco: Never Sex and Gender Information Value Date Recorded Sex Assigned at Not on file Legal Sex Male 9:16 AM EDT Gender Identity Not on file Sexual Orientation Not on file Last Filed Vital Signs Vital Sign Reading Time Taken Comments Blood Pressure - - Pulse - - Temperature - - Respiratory Rate - - Oxygen Saturation - - Inhaled Oxygen Concentration - - Weight 82.6 kg (182 lb) 08/10/2015 11:57 AM EDT Height 167.6 cm (5' 6 ) 08/10/2015 11:57 AM EDT Body Mass Index 29.38 08/10/2015 11:57 AM EDT Plan of Treatment Health Maintenance Due Date Last Done Comments COLOGUARD 1975 COLONOSCOPY 1975 Colorectal Screening Combination 1975 FIT 1975 HEP C SCREENING 1975 SIGMOIDOSCOPY 1973 ANNUAL WELLNESS EXAM 1976 DTAP/TDAP/TD VACCINE (1 - Tdap) 1992 Shingles Vaccine (Shingrix) (1 of 2) 07/14/2023 INFLUENZA VACCINE (#1) 2024 HEP A VACCINE Aged Out No longer elig ible based on patient's age to complete this topic HIB VACCINE Aged Out No longer eligi ble based on patient's age to complete this topic ROTOVIRUS VACCINE Aged Out No longer eligible based on patient's age to complete this topic Insurance MEDICARE Care Teams Behavioral Technician Relationship Specialty Start Date End Date Narciso Dong MD [address] [place] [id number] PCP - General Family Medicine 02/09/14
--- OUTSIDE RECORDS SUMMARY | 2024-11-03 10:52 | XMS_ITS | Data Portability ---
Author Organization [facility] Address [address] [place] [address] Care Team Providers Care Procurement Intern Name Role Phone CLAY GEE Primary Care Provider [phone] Assessment Encounter Date Assessment Date Assessment LastModified by Organization Details LastModified Time 09/24/2018 09/24/2018 43-year-old male with a L3-4 left far lateral disc bulge seen on MRI. His EMG that was performed today by Dr. Bettencourt shows a mild to moderate chronic left L3-4 and L5 radiculopathy. Patient has very subtle weakness in the left anterior tib. This case was reviewed with Dr. Sr. We feel comfortable letting the patient continue with traction with physical therapy. We will have him return to clinic in 4-6 weeks for recheck. At that time we can discuss further treatment options should he failed see improvement. This may be in the form of an JOYCE versus a L3-4 minimally invasive far lateral Discectomy. Unfortunately we do not have the CD containing his lumbar MRI images. I have asked the patient to contact [facility] to obtain another copy of the lumbar MRI CD. He understands to bring this with him and next visit. Patient states that he will also bring his cervical images for us to review next visit. Patient happy with this plan. Patient was seen and examined by myself and also by Dr. Sr who agrees with above. [email or web address] Not available 09/24/2018 15:36:47 Plan of Treatment Reminders Order Date Submit Date Provider Last Modified By Organization Details Last Modified Time Details Appointments None record ed. Lab None record ed. Referral None record ed. Procedures None record ed. Surgeries None record ed. Imaging None record ed. Medication Orders None record ed. Patient TargetsNo targets recorded. Patient Instructions Encounter Date Encounter Id Patient Instructions Last Modified By Organization Details Last Modified Time 02/18/2019 [id number] Spent 15 total minutes with the patient today. Greater than 50% of this time was spent counseling/coordi nation of care as documented in my assessment and plan above. [email or web address] Not available 02/25/2019 08:28:51 05/20/2019 [id number] Spent 15 total minutes with the patient today. Greater than 50% of this time was spent counseling/coordi nation of care as documented in my assessment and plan above. [email or web address] Not available 05/20/2019 16:39:02 Reason for Referral None Reported. Results Created Date Observation Date Name Description Value Unit Range Abnormal Flag Note LastModifiedBy Organization Detail LastModifiedTime 09/25/19 19 09/24/2018 lower extre mity nerve condu ction study (PROC ) No observ ation record ed. [email or web address] Not Available 07/2018 09:25:51 Result Notes None recorded. Problems Name Problem SNOMED Code Status Onset Date Resolution Date Notes Provider Name and Address Organization Details Recorded Time Neck pain 18025582 Active 2018 SANDIE CALDERA PA-C [address] [place], [address], [facility] 9 15:34:33 Lumbar disc prolapse with radiculopathy 450364579 Active 2018 SANDIE CALDERA PA-C [address] [place], [address], [facility] 9 15:34:35 Problem Notes None recorded. Procedures Surgical History Date Name Laterality Status Provider Name and Address Organization Details Recorded Time 12/11/19 19 Interpretation completed THEODORE ASHLEY PA-C [address] [place], [address], [facility] 12/10/2018 13:03:45 09/25/19 19 Electromyography (EMG) with Nerve Conduction Study (NCV) completed Rosalva Johnson (Nicky) [facility] 09/24/2018 14:33:59 Imaging Results None recorded. Procedure Notes None recorded. Medical Equipment None Reported. Allergies No known drug allergies Medications Name Sig Start Date Stop Date Status Note LastModified by Organization Details LastModified Time cyclobenzaprine 10 mg tablet active Not Available Not Available Not Available metformin 500 mg tablet active Not Available Not Available No t Available gabapentin 600 mg tablet active Not Available Not Available No t Available ibuprofen 800 mg tablet active Not Available Not Available No t Available lisinopril 20 mg tablet active Not Available Not Available No t Available olanzapine 5 mg tablet active Not Available Not Available Not Available oxcarbazepine 300 mg tablet Take 1 tablet twice a day by oral route. active Not Available Not Available No t Available trazodone 100 mg tablet active Not Available Not Available No t Available temazepam 30 mg capsule active Not Available Not Available Not Available cephalexin 500 mg capsule active Not Available Not Available N ot Available metformin 1,000 mg tablet active Not Available Not Available No t Available oxybutynin chloride ER 5 mg tablet,extended release 24 hr active Not Available Not Availabl e Not Available hydroxyzine HCl 25 mg tablet Take 2 tablets every day by oral route. active Not Available Not Available No t Available levofloxacin 500 mg tablet active Not Available Not Availabl e Not Available methylprednisol one 4 mg tablets in a dose pack Take 1 tablet every day by oral route. active Not Available Not Available No t Available cefdinir 300 mg capsule active Not Available Not Available Not Available fluoxetine 20 mg capsule active Not Available Not Available N ot Available buspirone 15 mg tablet active Not Available Not Available Not Available hydroxyzine pamoate 25 mg capsule active Not Available Not Available Not Available levocetirizine 5 mg tablet active Not Available Not Available Not Available Vitals Date Recorded Body height Body mass index (BMI) Body weight Systolic And Diastolic Provider Name and Address Organization Details Last Updated DateTime 09/24/2018 167.64 cm 28.1 kg/m2 44057.07 g 132/80 mm[Hg] [facility] 09/24/2018 14:53:05 Date Recorded Body height Body mass index (BMI) Body weight Systolic And Diastolic Provider Name and Address Organization Details Last Updated DateTime 12/10/2018 167.64 cm 28.1 kg/m2 88723.07 g 130/80 mm[Hg] [facility] 12/10/2018 11:41:30 Date Recorded Body height Body mass index (BMI) Body weight Systolic And Diastolic Provider Name and Address Organization Details Last Updated DateTime 02/18/2019 167.64 cm 28.1 kg/m2 25759.07 g 130/82 mm[Hg] Gillian Somers [facility] 02/18/2019 15:42:01 Social History Question Answer Notes LastModified by Organizat ion Details LastModified Time Tobacco Smoking Status Current Every Day Smoker Gillian Somers [facility], [facility] 07/23/2018 11:40:03 What Was The Date Of Your Most Recent Tobacco Screening? 09/24/2018 Information n ot available 06/17/2019 Sex: Unknown Functional Status None recorded. Mental Status None recorded. Family History Relationship Description Onset Age of this Age Resolved Age Notes LastModified by Organization Details LastModified Time Unspecified Relation Malignant neoplastic disease [email or web address] Not available 07/23 11:39:55 Unspecified Relation Diabetes mellitus [email or web address] Not available 07/23 11:40:00 Medical History Condition Response Diabetes Y Hypertension Y Past Encounters Encounter ID Performer Location Encounter Start Date Encounter Closed Date Diagnosis/Indication Diagnosis SNOMED-CT Code Diagnosis ICD10 Code Diagnosis Note [id number] NATALY SR MD [facility] [address] [place] [address] 07/23/2018 11:14:45 07/24/2018 12:28:09 Lumbar disc prolapse with radiculopathy 164708045 M51.16 -Mr. Walsh presents are clinic for evaluation of his low back and left leg symptoms. Symptoms have been present for at least 10 years. Has not had a lot of conservati ve measures in the past. Currently taking gabapentin , anti-infla mmatories. I think it is reasonable to continue conservati ve measures. The MRI shows a far lateral disc herniation at left L3-4. His symptoms in leg correspond to this. I would expect surgery for removal of the disc would relieve his leg pain. I do not think that this would alleviate most of his chronic low back problems. He understand s the indication s for surgery as well as other nonsurgica l options. We will continue with physical therapy at this point. May consider injections in the future if he desires as well. -Follow-up 2 months to reassess. Contact us earlier if his symptoms escalate. Thank you again for this referral and allowing us to participat e in Mr. Nico diaz. [id number] SABRINA BETTENCOURT MD NEUROLOGY [facility] [address] [place] [address] 09/24/2018 14:01:33 09/24/2018 14:38:12 Lumbar radiculopathy 940729500 M54.16 Low back pain 120678525 M54.5 [id number] SANDIE CALDERA [facility] [address] [place] [address] 09/24/2018 14:40:05 09/25/2018 09:07:45 Lumbar disc prolapse with radiculopathy 791126691 M51.16 Neck pain 21801047 M54.2 [id number] THEODORE ASHLEY PA-C [facility] [address] [place] [address] 12/10/2018 11:26:15 12/11/2018 10:17:56 Lumbar spondylosis 871300402 M47.896 Lumbar MRI was reviewed. To most significan t findings are at L3-4 as well as L5-S1. He has a disc protrusion at L3-4 with extension leftward to the neural foramen with recess and foraminal stenosis, and a small left paracentra l disc herniation at L5-S1 with some mild displaceme nt of the left S1 nerve root. These areas seem to correlate with his 2 areas of leg pain. That said, the stenosis at L3-4 is more impressive however his L3 radiculopa thy is relatively mild for him. Findings at L5-S1 or not as impressive though this appears to be more painful for him. Nerve studies did not show one level being particular ly more bothersome than the other. Not show any acute findings, however some chronic electromyo graphic evidence of radiculopa thy. Treatment options discussed. At this time, recommend a trial of lumbar injections . We'll make this referral form. 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 He tells me that he would like a referral back to his psychiatri st to discuss some antianxiet y measures to help with this. This is reasonable . We'll make this referral for him. We'll plan to see him back in 6-8 weeks to see how he responded to the injections . I told him that if his symptoms significan tly improved by that time, it is fine to cancel that appointmen t. If his symptoms have not been improving, or a worsening, we'll plan to get an updated lumbar MRI without contrast prior to his follow-up. He has to call with any questions or concerns. He is happy with this plan. Cervical spondylosis [id number] 826181 M47.812 Cervical MRI shows some mild-to-mo derate C3-4 spondylosi s. There is a small central disc bulge here, however there is no severe stenosis or neural compressio n. Otherwise his cervical MRI to show some mild degenerati ve changes. He brought the CD with him today to have us review has he's been complainin g of some axial neck pain his last visit. He does not have any signs or symptoms of cervical radiculopa thy no surgical recommenda tions for this. Continue conservati ve management . He is happy with this plan. [id number] MAGGIE MCCARTHY PA-C [facility] [address] [place] [address] 02/18/2019 14:56:21 02/25/2019 09:05:28 Lumbar spondylosis [id number] M47.896 Last lumbar MRI was from 04/16/18 at [facility]. He did not bring the CD back with him in this is not scanned in the PACS. Per the last note, the most significan t findings are at L3-4 as well as L5-S1. He has a disc protrusion at L3-4 with extension leftward to the neural foramen with recess and foraminal stenosis, and a small left paracentra l disc herniation at L5-S1 with some mild displaceme nt of the left S1 nerve root. Nerve studies from 09/24/18 showed mild to moderate chronic left L3 to 4 and L5 radiculopa thy. He would like to trial injection therapy. He would also like to trial a Medrol Dosepak. As symptoms are worsening in his MRI is almost-yea r-old now, we will order an updated lumbar MRI without contrast. I offered to see him back after the MRI was completed. He states he has been coming to the office about every 8 weeks now, and he would like to push back is follow-up until 2 months from now. This is reasonable . He knows to call with any questions or concerns in the meantime. [id number] NATALY SR MD [facility] [address] [place] [address] 05/20/2019 15:11:11 05/22/2019 10:42:52 Lumbosacral spondylosis with radiculopathy [id number] M47.27 -The patient returns to clinic today for discussion about his low back issues. Overall, his chronic back and leg pain are unchanged. He has an appointmen t with pain management in a few weeks. I reinforced with the patient today that surgery is a last resort option for him. He should exhaust other conservati ve measures first. [place]. He will have the CD sent to us for review. The report will be faxed to us. Once we review the imaging we will contact the patient with our interpreta tion. Any further recommenda tions will await final review of this imaging. Health Concerns Section Related Observation LastModified by Organization Detai ls LastModified Time None Recorded Concern Status LastModified by Organization Details LastModified Time None Recorded Advance Directives Directive None Recorded Payers Insurance Date Sequence Insurance Name Policy Number Policy Damon Covered Member ID Damon Member ID Guarantor Name 09/02/2024 1 [place] (MEDICARE[place] Canelo Walsh [id number] Canelo Walsh 09/02/[address] [facility] (MEDICARE REPLACEMENT/A DVANTAGE - HMO) Canelo Walsh [id number] Canelo Walsh 09/06/2020 PAYMENT PLAN Canelo Walsh Notes Date Note Type Note Provider Name and Address Organization Details Recorded Time 09/24/2018 text/html 43-year-old male Presents to the clinic for recheck after an EMG for further evaluation of his left lumbar radiculopathy. He was last seen on 07/23/2018. He was found to have a left far lateral disc herniation at L3-4. The patient has a history of a chronic low back pain with radiculopathy greater than 10 years. The patient at the previous visit was referred to physical therapy. He states that over the last couple visits they've tried some traction and he feels like he is making some improvement with this modality. He describes pain in the low back that radiates to the left buttock left Tear lateral thigh to the knee. He has numbness and tingling. It is a burning sensation. He has good days and bad days. The pain can be so severe to where it limits his ability to tolerate activity. He denies any saddle paresthesia change bowel bladder. Patient also admits to having cervical pain chronically. Described pain in the back of the neck with numbness that will radiate down the left arm to the second and third digit. States that he had some recent imaging of his cervical spine. He does not have this with him. He is unsure if it was x-rays or an MRI. Does endorse sharp pain in his back recalls or sneezes. He does not endorse any change in dexterity, coordination, right arm symptoms. SANDIE CALDERA PA-C [address] [place], [address], [facility] 09/24/2018 15:36:58 12/10/2018 text/html Mr. Nico otoole nts to clinic for follow-up after physical therapy. We saw him in consultation back in August. He is a 43-year-old with more than 10 years of axial low back and left radicular leg symptoms. These were described as a burning neuropathic pain along the left anterior goodman as well as a sharp radiating pain down the lateral aspect of his left leg and over the top of the foot. Symptoms are constant, but they do very on intensity. When we last saw him, he had recently undergone a set of lower extremity nerve studies. This showed [id number] chronic left L3-4 and L5 radiculopathy. Sounds like he did not have a copy of his MRI images with him that there was comment about him having a L3-4 far lateral disc bulge. Plan at that time was to have him continue with physical therapy and have him return for follow-up at this time. He denies any symptoms since we last saw him. He did bring a copy of the CD-ROM with his lumbar MRI as well as a cervical MRI. THEODORE ASHLEY PA-C [address] [place], [address], [facility] 12/10/2018 13:11:59 02/18/2019 text/html Mr. Nico otoole nts to clinic for follow-up. He is a 43-year-old with more than 10 years of axial low back and left radicular leg symptoms. These were described as a burning neuropathic pain along the left anterior goodman as well as a sharp radiating pain down the lateral aspect of his left leg and over the top of the foot. It was recommended that he undergo lumbar injections at his last visit about 2 months ago. His his severe needle phobia and was unable to undergo injections. He has been working with a psychiatrist and thinks that he may be ready to undergo an injection now. He's been taking ibuprofen for his symptoms. Denies b/b incontinence, saddle paresthesias, or gait disturbance. MAGGIE MCCARTHY PA-C [address] [place], [address], [facility] 02/25/2019 08:41:10 05/20/2019 text/html Mr. Walsh retur ns to clinic for discussion about his low back pain. He is low back pain and referred pain into the leg. Symptoms are unchanged compared to his prior visit. He got an updated MRI at [facility]. He does not have the disc with him today. We will have [facility] fax us the report of the MRI of the lumbar spine. He has an appointment with the pain treatment center on May 30. We continue to think that conservative, nonoperative measures are his best option. He has pain into the left leg. Burning component. No new symptoms are reported. NATALY SR MD [address] [place], [address], [facility] 05/20/2019 16:40:30
--- OUTSIDE RECORDS SUMMARY | 2024-11-03 10:52 | XMS_ITS | Clinical Summary ---
Author Organization Healthcare Address [address] [place] [address] Care Team Providers Care Locks Tender Name Role Phone Unavailable Primary Care Provider Unavailabl e Encounters Date Type Department Care Team Description 10/07/2024 Telephone [facility] Urology [address] [place] [address] Yazmin Amato I, GILMAR from Last 3 Months Social History Tobacco Use Types Packs/Day Years Used Date Smoking Tobacco: Never Assessed Sex and Gender Information Value Date Recorded Sex Assigned at Not on file Legal Sex Male 8:28 PM EDT Gender Identity Not on file Sexual Orientation Not on file Plan of Treatment Upcoming Encounters Date Type Department Care Team (Late st Contact Info) Description 01/08/2025 10:15 AM EDT Consult [facility] Urology [address] [place] [address] Darian Lincoln MD [address] [place] [address] Health Maintenance Due Date Last Done Comments [facility]-Depression Screening 1973 [facility]-HIV Screening 1973 [facility]-Hepatitis C Screening 1973 [facility]-Medicare Annual Wellness (AWV) 1973 [facility]-/Child/Adol SDOH Screenings 1973 [facility]- SDOH Screenings 07/14/1991 [facility]-Adult SDOH Screenings 07/14/1991 [facility]-DTaP,Tdap,and Td Vaccine s (1 - Tdap) 1992 [facility]-Hepatitis B Vaccines (1 of 3 - 19+ 3-dose series) 1992 CT Colonography 2018 Colonoscopy 2018 FIT-DNA 2018 FIT 2018 FOBT 2018 Sigmoidoscopy 2018 [facility]-Colorectal Cancer Screening 2018 [facility]-Pneumococcal Vaccine: 50 + Years (1 of 1 - PCV) 07/14/2023 [facility]-Zoster Vaccines (1 of 2) 07/14/2023 [id number] Vaccine (1 - 20 24-25 season) 2023 [facility]-Influenza Vaccine (#1) 2024 HPV Vaccines Aged Out No longer eligi ble based on patient's age to complete this topic [facility]-HIB Vaccines Aged Out No longer e ligible based on patient's age to complete this topic [facility]-Hepatitis A Vaccines Aged Out No longer eligible based on patient's age to complete this topic [facility]-IPV Vaccines Aged Out No longer e ligible based on patient's age to complete this topic [facility]-Rotavirus Vaccines Aged Out No lo nger eligible based on patient's age to complete this topic Insurance [facility] MEDICARE
--- OUTSIDE RECORDS SUMMARY | 2024-11-03 10:52 | XMS_ITS | Encounter Summary ---
Author Organization Healthcare Address [address] [place] [address] Care Team Providers Care Web Retailer Name Role Phone Unavailable Primary Care Provider Unavailabl e Encounter Details Date Type Department Care Team (Late st Contact Info) Description 10/07/2024 Telephone [facility] Urology [address] [place] [address] Yazmin Amato I, RN [facility] Social History Tobacco Use Types Packs/Day Years Used Date Smoking Tobacco: Never Assessed Sex and Gender Information Value Date Recorded Sex Assigned at Not on file Legal Sex Male 8:28 PM EDT Gender Identity Not on file Sexual Orientation Not on file documented as of this encounter Miscellaneous Notes * Telephone Encounter - Yazmin Amato I RN - 10/07/2024 10:21 AM EDT Called to schedule urology appointment; no answer, left vm with name/number. documented in this encounter Plan of Treatment Upcoming Encounters Date Type Department Care Team (Late st Contact Info) Description 01/08/2025 10:15 AM EDT Consult [facility] Urology [address] [place] [address] Darian Lincoln MD [address] [place] [address] documented as of this encounter Visit Diagnoses Not on filedocumented in this encounter
== END 2024-10-30 23:59 | disposition home or self-care (01) ==
LOC: LAB.DROPOF 11-03 10:34
PROVIDERS: PCP Family Medicine; Visit Provider Family Medicine
DX: Z12.5 Encounter for screening for malignant neoplasm of prostate (principal); E11.9 Type 2 diabetes mellitus without complications; R07.9 Chest pain, unspecified
CPT/HCPCS: 80053; 80061; 82043; 82570; G0103

== ENCOUNTER 2025-02-11 11:00 | Outpatient (CLI) | payer OTHER, MEDICARE, SELFPAY ==
[2025-02-11 16:16] LABS: Hematocrit 44.1 % (42.0-52.0); Hemoglobin 14.7 g/dL (14.1-18.0); Immature Granulocytes % 0.7 %; Mean Corpuscular HGB Conc 33.3 g/dL (31.8-35.4); Mean Corpuscular Hemoglobin 30.2 pg (27.0-31.2); Mean Corpuscular Volume 90.7 fl (80-94); Nucleated Red Blood Cells % 0 %; Platelet Count 195 K/mm3 (142-424); Red Blood Count 4.86 M/mm3 (4.60-6.20); Red Cell Distribution Width-SD 43.7 fL; White Blood Count 9.8 K/mm3 (4.8-10.8)
[2025-02-11 17:02] LABS: Alanine Aminotransferase 21 U/L (12-78); Albumin Level 4.0 g/dl (3.5-5.0); Albumin/Globulin Ratio 1.6 (1.1-1.8); Alkaline Phosphatase 158 U/L (38-126); Anion Gap 13.2 mEq/L (5-15); Aspartate Amino Transferase 21 U/L (17-59); Bilirubin,Total 0.6 mg/dl (0.2-1.3); Blood Urea Nitrogen 11 mg/dl (9-20); Calcium 9.2 mg/dl (8.4-10.2); Carbon Dioxide 28 mmol/L (22.0-30.0); Chloride 103 mmol/L (98-107); Creatinine,Serum 0.80 mg/dl (0.66-1.25); Estimated Glomerular Filt Rate 102 ml/min (>60); GFR (African American) 123 ML/MIN (>60); Globulin 2.5 g/dL (1.3-3.2); Glucose 125 mg/dl (74-100); Potassium 4.2 mmoL/L (3.5-5.1); Sodium 140 mmol/L (136-145); Total Protein,Serum 6.5 g/dl (6.3-8.2)
[2025-02-13 12:12] LABS: Testosterone,Total 335 ng/dL (264-916)
== END 2025-02-11 23:59 | disposition home or self-care (01) ==
LOC: LAB.DROPOF 02-12 12:09
PROVIDERS: PCP Family Medicine; Visit Provider Family Medicine
DX: E29.1 Testicular hypofunction (principal); E11.9 Type 2 diabetes mellitus without complications
CPT/HCPCS: 80053; 82043; 82570; 84403; 85025